=== PATIENT | male | born 1980 | race Caucasian/White ===

== ENCOUNTER 2017-07-05 19:36 | Inpatient (IN) | payer OTHER ==
[~2017-07-05] VITALS: Ht 195.6 cm; Wt 90.5 kg
[2017-07-05] VITALS (55 sets, daily range): BP systolic 105–132; BP diastolic 57–85; PULSE 100–108; TEMP 97.5–97.7; O2SAT 91–96
[2017-07-05 20:14] LABS: BASO % 0.5 % (0.0-2.0); EOS % 0.5 % (0-4.0); GRAN # 4.9 (1.4-6.5); GRAN % 63.7 % (42.2-75.2); HEMATOCRIT 45.2 % (42.0-52.0); HEMOGLOBIN 15.6 g/dl (13.5-18.0); LYMPH # 2.2 (1.2-3.4); MEAN CELL VOLUME 89 fl (80.0-100.0); MEAN CORPUSCULAR HEMOGLOBIN 31 pg (27.0-31.0); MEAN CORPUSCULAR HGB CONC 35 g/dl (33.0-37.0); MEAN PLATELET VOLUME 9.3 fl (7.4-10.4); MONO # 0.5 (0.1-0.6); MONO % 6.2 % (1.7-9.3); PLATELET COUNT 219 K/mm3 (130-400); REDCELL DISTRIBUTION WIDTH-CV 13.3 % (11.5-14.5)
[2017-07-05 20:25] LABS: ACETAMINOPHEN < 10 ug/mL (10-30); ALANINE AMINOTRANSFERASE 140 U/L (21-72); ALBUMIN 4.8 gm/dL (3.5-5.0); ALKALINE PHOSPHATASE 89 U/L (50-136); ANION GAP 19 mmol/L (7-16); AST,SGOT 165 U/L (15-37); BILIRUBIN,TOTAL 1.4 mg/dL (0.0-1.0); BLOOD UREA NITROGEN 12 mg/dL (9-20); CALCIUM 9.3 mg/dL (8.4-10.2); CARBON DIOXIDE 26 mmol/L (22-30); CHLORIDE 102 mmol/L (98-107); CREATININE, serum 0.87 mg/dL (0.66-1.25); GLUCOSE 101 mg/dL (74-106); SALICYLATE < 1.0 mg/dL; SODIUM 146 mmol/L (137-145); TOTAL PROTEIN 8.1 gm/dL (6.4-8.2)
[2017-07-05 20:33] LABS: ALCOHOL(ethanol),MEDICAL 405 mg/dL
[2017-07-05 21:21] LABS: COLLECTION METHOD CLEAN CATCH
[2017-07-05 21:26] LABS: PH 7 (5-8); SQUAMOUS EPITHELIAL 0-2 /hpf; URINE APPEARANCE Hazy; URINE BACTERIA None Seen /hpf; URINE BILIRUBIN Negative (NEGATIVE); URINE BLOOD 1+ (NEGATIVE); URINE COLOR Yellow; URINE GLUCOSE Negative (NEGATIVE); URINE KETONE Negative (NEGATIVE); URINE LEUKOCYTE ESTERASE Negative (NEGATIVE); URINE NITRATE Negative (NEGATIVE); URINE PROTEIN(semi-quant) 1+ (NEGATIVE); URINE RBC 0-2 /hpf; URINE UROBILINOGEN Negative (NEGATIVE)
[2017-07-05 21:39] LABS: TRICYCLIC ANTIDEPRESS URINE NEGATIVE
[2017-07-05 23:43] LABS: INR 0.8 (0.8-3.0); PROTHROMBIN TIME 9.6 SECONDS (9.7-12.8)
[2017-07-05 23:46] LABS: PARTIAL THROMBOPLASTIN TIME 30.5 SECONDS (26.0-37.0)
[2017-07-06] VITALS (320 sets, daily range): BP systolic 103–149; BP diastolic 55–102; PULSE 92–111; TEMP 97.9–99.9; O2SAT 88–99
[2017-07-06 05:57] LABS: BASO % 0.6 % (0.0-2.0); EOS # 0.1 (0.0-0.7); EOS % 2.2 % (0-4.0); GRAN # 2.6 (1.4-6.5); GRAN % 50.7 % (42.2-75.2); LYMPH % 39.2 % (20.0-51.0); MEAN CELL VOLUME 92 fl (80.0-100.0); MEAN CORPUSCULAR HGB CONC 34 g/dl (33.0-37.0); MEAN PLATELET VOLUME 9.8 fl (7.4-10.4); MONO # 0.4 (0.1-0.6); MONO % 7.1 % (1.7-9.3); PLATELET COUNT 141 K/mm3 (130-400); RED BLOOD COUNT 3.92 M/mm3 (4.20-5.60); REDCELL DISTRIBUTION WIDTH-CV 13.7 % (11.5-14.5)
[2017-07-06 06:03] LABS: HEMATOCRIT 35.9 % (42.0-52.0); HEMOGLOBIN 12.2 g/dl (13.5-18.0); MEAN CORPUSCULAR HEMOGLOBIN 31 pg (27.0-31.0)
[2017-07-06 06:05] LABS: ALBUMIN 3.8 gm/dL (3.5-5.0); BILIRUBIN,TOTAL 1.3 mg/dL (0.0-1.0); CALCIUM 8.1 mg/dL (8.4-10.2); CREATININE, serum 0.8 mg/dL (0.66-1.25); POTASSIUM 3.6 mmol/L (3.4-5.0); TOTAL PROTEIN 6.5 gm/dL (6.4-8.2)
[2017-07-07 03:24] VITALS: BP 140/85; PULSE 106; TEMP 99.9
[2017-07-07 05:47] LABS: BASO % 0.3 % (0.0-2.0); EOS # 0.2 (0.0-0.7); EOS % 2.3 % (0-4.0); GRAN # 5.3 (1.4-6.5); GRAN % 75.9 % (42.2-75.2); HEMOGLOBIN 12.2 g/dl (13.5-18.0); LYMPH # 1.1 (1.2-3.4); LYMPH % 15.4 % (20.0-51.0); MEAN CELL VOLUME 91 fl (80.0-100.0); MEAN CORPUSCULAR HEMOGLOBIN 31 pg (27.0-31.0); MEAN CORPUSCULAR HGB CONC 34 g/dl (33.0-37.0); MONO # 0.4 (0.1-0.6); MONO % 5.8 % (1.7-9.3); PLATELET COUNT 120 K/mm3 (130-400); RED BLOOD COUNT 3.95 M/mm3 (4.20-5.60); REDCELL DISTRIBUTION WIDTH-CV 12.8 % (11.5-14.5)
[2017-07-07 05:50] LABS: HEMATOCRIT 35.9 % (42.0-52.0)
[2017-07-07 05:58] LABS: ALBUMIN 3.3 gm/dL (3.5-5.0); CALCIUM 8.5 mg/dL (8.4-10.2); CREATININE, serum 0.7 mg/dL (0.66-1.25); POTASSIUM 4.1 mmol/L (3.4-5.0); TOTAL PROTEIN 6.2 gm/dL (6.4-8.2)
[2017-07-07 08:00] VITALS: BP 131/90; PULSE 80; TEMP 98.1
[2017-07-07 12:00] VITALS: BP 134/88; PULSE 89; TEMP 96.9
[2017-07-07 13:25] VITALS: O2SAT 98
[2017-07-07 16:00] VITALS: BP 130/91; PULSE 94; TEMP 98.1
== END 2017-07-07 20:20 | disposition left against medical advice (07) | DRG 894 ==
LOC: COL.ER 19:36 → ICU 22:31
PROVIDERS: Internal Medicine; Nurse Practitioner; Nurse Practitioner Family
DX: F10.229 Alcohol dependence with intoxication, unspecified (principal); R45.851 Suicidal ideations; F10.24 Alcohol dependence with alcohol-induced mood disorder; F11.129 Opioid abuse with intoxication, unspecified; Y90.8 Blood alcohol level of 240 mg/100 ml or more; F17.210 Nicotine dependence, cigarettes, uncomplicated; F60.3 Borderline personality disorder
CPT/HCPCS: OP; 99232-AI; A4216; J1650; J2060; J2405; J3486; J7030

== ENCOUNTER 2017-07-08 00:22 | Emergency (ER) | payer OTHER ==
[~2017-07-08] VITALS: Ht 188 cm; Wt 84.1 kg
[2017-07-08 00:33] LABS: COLLECTION METHOD CLEAN CATCH
[2017-07-08 00:39] LABS: PH 6 (5-8); SQUAMOUS EPITHELIAL None Seen /hpf; URINE APPEARANCE Clear; URINE BACTERIA None Seen /hpf; URINE BILIRUBIN Negative (NEGATIVE); URINE BLOOD Negative (NEGATIVE); URINE COLOR Straw; URINE GLUCOSE Negative (NEGATIVE); URINE KETONE Negative (NEGATIVE); URINE LEUKOCYTE ESTERASE Negative (NEGATIVE); URINE NITRATE Negative (NEGATIVE); URINE PROTEIN(semi-quant) Negative (NEGATIVE); URINE RBC 0-2 /hpf; URINE UROBILINOGEN Negative (NEGATIVE)
[2017-07-08 00:54] LABS: BASO % 0.3 % (0.0-2.0); EOS # 0.1 (0.0-0.7); EOS % 1.4 % (0-4.0); GRAN # 7.8 (1.4-6.5); GRAN % 76.9 % (42.2-75.2); HEMATOCRIT 44.8 % (42.0-52.0); LYMPH # 1.7 (1.2-3.4); LYMPH % 17.1 % (20.0-51.0); MEAN CELL VOLUME 92 fl (80.0-100.0); MEAN CORPUSCULAR HEMOGLOBIN 31 pg (27.0-31.0); MEAN CORPUSCULAR HGB CONC 34 g/dl (33.0-37.0); MEAN PLATELET VOLUME 9.9 fl (7.4-10.4); MONO # 0.4 (0.1-0.6); PLATELET COUNT 136 K/mm3 (130-400); RED BLOOD COUNT 4.87 M/mm3 (4.20-5.60)
[2017-07-08 01:03] LABS: TRICYCLIC ANTIDEPRESS URINE NEGATIVE
[2017-07-08 01:30] LABS: ALANINE AMINOTRANSFERASE 161 U/L (21-72); ALBUMIN 4.6 gm/dL (3.5-5.0); ALCOHOL(ethanol),MEDICAL 224 mg/dL; ALKALINE PHOSPHATASE 99 U/L (50-136); ANION GAP 19 mmol/L (7-16); AST,SGOT 172 U/L (15-37); BILIRUBIN,TOTAL 0.7 mg/dL (0.0-1.0); BLOOD UREA NITROGEN 13 mg/dL (9-20); CALCIUM 9.7 mg/dL (8.4-10.2); CARBON DIOXIDE 23 mmol/L (22-30); CHLORIDE 105 mmol/L (98-107); CREATININE, serum 0.79 mg/dL (0.66-1.25); GLUCOSE 94 mg/dL (74-106); POTASSIUM 4.2 mmol/L (3.4-5.0); SODIUM 147 mmol/L (137-145); TOTAL PROTEIN 8.2 gm/dL (6.4-8.2)
[2017-07-08 01:37] LABS: ACETAMINOPHEN < 10 ug/mL (10-30); SALICYLATE < 1.0 mg/dL
[2017-07-09] MEDS ORDERED: DESYREL DIVIDO150 M1 PO (04:34)
[2017-07-09 14:40] VITALS: BP 132/83; PULSE 120; TEMP 98.1
== END 2017-07-09 15:04 ==
LOC: COL.ER 00:22
PROVIDERS: Emergency Medicine
DX: S82.891A Other fracture of right lower leg, initial encounter for closed fracture (principal); S00.11XA Contusion of right eyelid and periocular area, initial encounter; F10.129 Alcohol abuse with intoxication, unspecified; R45.851 Suicidal ideations; F17.210 Nicotine dependence, cigarettes, uncomplicated; Y90.7 Blood alcohol level of 200-239 mg/100 ml; Z91.5 Personal history of self-harm; Z81.8 Family history of other mental and behavioral disorders; W06.XXXA Fall from bed, initial encounter
CPT/HCPCS: A4216; J2405; J3486

== ENCOUNTER 2017-07-21 18:31 | Emergency (ER) | payer OTHER ==
[~2017-07-21] VITALS: Ht 188 cm; Wt 90.9 kg
[~2017-07-21 18:31] MED LIST: DESYREL DIVIDO150 M1 PO
[2017-07-21 18:35] VITALS: TEMP 97.3
[2017-07-21] MEDS ORDERED: CELEXA 20MG20 MG/TAB PO (18:39)
[2017-07-21 19:16] LABS: BASO # 0.1 (0.0-0.2); BASO % 0.9 % (0.0-2.0); EOS % 0.4 % (0-4.0); GRAN # 5.6 (1.4-6.5); GRAN % 55.2 % (42.2-75.2); HEMATOCRIT 43.7 % (42.0-52.0); HEMOGLOBIN 14.9 g/dl (13.5-18.0); MEAN CELL VOLUME 90 fl (80.0-100.0); MEAN CORPUSCULAR HEMOGLOBIN 31 pg (27.0-31.0); MEAN CORPUSCULAR HGB CONC 34 g/dl (33.0-37.0); MEAN PLATELET VOLUME 8.7 fl (7.4-10.4); MONO # 0.4 (0.1-0.6); PLATELET COUNT 368 K/mm3 (130-400); RED BLOOD COUNT 4.86 M/mm3 (4.20-5.60); REDCELL DISTRIBUTION WIDTH-CV 13.3 % (11.5-14.5)
[2017-07-21 19:24] LABS: ACETAMINOPHEN < 10 ug/mL (10-30); ALANINE AMINOTRANSFERASE 51 U/L (21-72); ALBUMIN 4.2 gm/dL (3.5-5.0); ALKALINE PHOSPHATASE 90 U/L (50-136); ANION GAP 16 mmol/L (7-16); AST,SGOT 47 U/L (15-37); BILIRUBIN,TOTAL 0.4 mg/dL (0.0-1.0); BLOOD UREA NITROGEN 19 mg/dL (9-20); CALCIUM 8.8 mg/dL (8.4-10.2); CARBON DIOXIDE 28 mmol/L (22-30); CHLORIDE 103 mmol/L (98-107); CREATININE, serum 0.91 mg/dL (0.66-1.25); GLUCOSE 84 mg/dL (74-106); POTASSIUM 4.3 mmol/L (3.4-5.0); SALICYLATE < 1.0 mg/dL; SODIUM 148 mmol/L (137-145)
[2017-07-21 19:31] LABS: ALCOHOL(ethanol),MEDICAL 335 mg/dL
[2017-07-21 19:53] LABS: COLLECTION METHOD CLEAN CATCH
[2017-07-21 20:01] LABS: MUCOUS Present /lpf; PH 6 (5-8); SQUAMOUS EPITHELIAL None Seen /hpf; URINE APPEARANCE Hazy; URINE BACTERIA None Seen /hpf; URINE BILIRUBIN Negative (NEGATIVE); URINE BLOOD Negative (NEGATIVE); URINE COLOR Yellow; URINE GLUCOSE Negative (NEGATIVE); URINE KETONE Negative (NEGATIVE); URINE LEUKOCYTE ESTERASE Negative (NEGATIVE); URINE NITRATE Negative (NEGATIVE); URINE PROTEIN(semi-quant) Negative (NEGATIVE); URINE RBC 0-2 /hpf; URINE UROBILINOGEN Negative (NEGATIVE)
[2017-07-21 20:06] LABS: TRICYCLIC ANTIDEPRESS URINE NEGATIVE
[2017-07-22 03:52] VITALS: BP 139/96
[2017-07-22 05:11] VITALS: PULSE 109
== END 2017-07-22 05:11 | disposition home or self-care (01) ==
LOC: COL.ER 18:31
PROVIDERS: Emergency Medicine
DX: F10.129 Alcohol abuse with intoxication, unspecified (principal); R45.851 Suicidal ideations; F15.90 Other stimulant use, unspecified, uncomplicated; F12.90 Cannabis use, unspecified, uncomplicated; Y90.8 Blood alcohol level of 240 mg/100 ml or more
CPT/HCPCS: J2060; J7030

== ENCOUNTER 2017-07-24 04:44 | Emergency (ER) | payer OTHER ==
[~2017-07-24] VITALS: Ht 5.1 cm; Wt 92.0 kg
[~2017-07-24 04:44] MED LIST changes: +CELEXA 20MG20 MG/TAB PO
[2017-07-24 04:56] VITALS: TEMP 97.1
[2017-07-24 05:12] LABS: COLLECTION METHOD CLEAN CATCH
[2017-07-24 05:15] LABS: BASO # 0.1 (0.0-0.2); EOS # 0.1 (0.0-0.7); EOS % 1.5 % (0-4.0); GRAN # 3.6 (1.4-6.5); GRAN % 41.4 % (42.2-75.2); HEMATOCRIT 43.8 % (42.0-52.0); HEMOGLOBIN 14.8 g/dl (13.5-18.0); LYMPH # 4.5 (1.2-3.4); LYMPH % 51.8 % (20.0-51.0); MEAN CELL VOLUME 90 fl (80.0-100.0); MEAN CORPUSCULAR HEMOGLOBIN 31 pg (27.0-31.0); MEAN CORPUSCULAR HGB CONC 34 g/dl (33.0-37.0); MEAN PLATELET VOLUME 8.9 fl (7.4-10.4); MONO # 0.4 (0.1-0.6); MONO % 4.1 % (1.7-9.3); PLATELET COUNT 358 K/mm3 (130-400); RED BLOOD COUNT 4.85 M/mm3 (4.20-5.60); REDCELL DISTRIBUTION WIDTH-CV 13.7 % (11.5-14.5)
[2017-07-24 05:18] LABS: MUCOUS Present /lpf; PH 5 (5-8); SQUAMOUS EPITHELIAL 0-2 /hpf; URINE APPEARANCE Clear; URINE BACTERIA None Seen /hpf; URINE BILIRUBIN Negative (NEGATIVE); URINE BLOOD 1+ (NEGATIVE); URINE COLOR Yellow; URINE GLUCOSE Negative (NEGATIVE); URINE KETONE Negative (NEGATIVE); URINE LEUKOCYTE ESTERASE Negative (NEGATIVE); URINE NITRATE Negative (NEGATIVE); URINE PROTEIN(semi-quant) 1+ (NEGATIVE); URINE UROBILINOGEN Negative (NEGATIVE)
[2017-07-24 05:26] LABS: ALANINE AMINOTRANSFERASE 60 U/L (21-72); ALBUMIN 4.5 gm/dL (3.5-5.0); ALCOHOL(ethanol),MEDICAL 286 mg/dL; ALKALINE PHOSPHATASE 95 U/L (50-136); ANION GAP 18 mmol/L (7-16); AST,SGOT 53 U/L (15-37); BILIRUBIN,TOTAL 0.6 mg/dL (0.0-1.0); BLOOD UREA NITROGEN 15 mg/dL (9-20); CALCIUM 8.5 mg/dL (8.4-10.2); CARBON DIOXIDE 23 mmol/L (22-30); CHLORIDE 106 mmol/L (98-107); CREATININE, serum 0.94 mg/dL (0.66-1.25); GLUCOSE 99 mg/dL (74-106); POTASSIUM 4.1 mmol/L (3.4-5.0); SODIUM 147 mmol/L (137-145); TOTAL PROTEIN 8.5 gm/dL (6.4-8.2)
[2017-07-24 05:27] LABS: ACETAMINOPHEN < 10 ug/mL (10-30); SALICYLATE < 1.0 mg/dL
[2017-07-24 05:41] LABS: TRICYCLIC ANTIDEPRESS URINE NEGATIVE
[2017-07-25 10:34] VITALS: BP 128/82; PULSE 86
== END 2017-07-25 10:50 ==
LOC: COL.ER 04:44
PROVIDERS: Emergency Medicine
DX: R45.851 Suicidal ideations (principal); F10.129 Alcohol abuse with intoxication, unspecified; F32.9 Major depressive disorder, single episode, unspecified; F17.210 Nicotine dependence, cigarettes, uncomplicated; Y90.8 Blood alcohol level of 240 mg/100 ml or more
CPT/HCPCS: J2060; J7030

== ENCOUNTER 2021-08-04 16:25 | Inpatient (IN) | payer SELFPAY ==
[2021-08-04] VITALS (210 sets, daily range): BP systolic 103–155; BP diastolic 68–101; PULSE 71–120; TEMP 97.2; O2SAT 76–100
[~2021-08-04] VITALS: Ht 188 cm; Wt 118.5 kg
[2021-08-04 17:20] LABS: COLLECTION METHOD CLEAN CATCH
[2021-08-04 17:26] LABS: MUCOUS Present (NOT PRESENT); PH 6 (5-8); SQUAMOUS EPITHELIAL 0-2 /hpf (0-10); URINE APPEARANCE Clear (CLEAR/HAZY); URINE BACTERIA None Seen /hpf (NONE SEEN); URINE BILIRUBIN Negative (NEGATIVE); URINE BLOOD Negative (NEGATIVE); URINE COLOR Yellow (YELLOW); URINE GLUCOSE Negative (NEGATIVE); URINE KETONE 1+ (NEGATIVE); URINE LEUKOCYTE ESTERASE Negative (NEGATIVE); URINE NITRATE Negative (NEGATIVE); URINE PROTEIN(semi-quant) Negative (NEGATIVE); URINE RBC 0-2 /hpf (0-2); URINE UROBILINOGEN Negative (NEGATIVE)
[2021-08-04 17:27] LABS: BASO # 0.1 K/mm3 (0.0-0.2); BASO % 0.5 % (0.0-2.0); EOS % 0.3 % (0.0-4.0); GRAN # 7.4 K/mm3 (1.4-6.5); GRAN % 73.5 % (42.2-75.2); HEMATOCRIT 42.8 % (42.0-52.0); HEMOGLOBIN 14.6 g/dl (13.5-18.0); LYMPH # 2.1 K/mm3 (1.2-3.4); LYMPH % 21.1 % (20.0-51.0); MEAN CELL VOLUME 85 fl (80.0-100.0); MEAN CORPUSCULAR HEMOGLOBIN 29 pg (27-31); MEAN CORPUSCULAR HGB CONC 34 g/dl (33.0-37.0); MEAN PLATELET VOLUME 10.4 fl (7.4-10.4); MONO # 0.4 K/mm3 (0.1-0.6); MONO % 4.2 % (1.7-9.3); PLATELET COUNT 243 K/mm3 (130-400); RED BLOOD COUNT 5.05 M/mm3 (4.20-5.60); REDCELL DISTRIBUTION WIDTH-CV 12.6 % (11.5-14.5)
[2021-08-04 17:34] LABS: TRICYCLIC ANTIDEPRESS URINE NEGATIVE
[2021-08-04 17:47] LABS: ALANINE AMINOTRANSFERASE 14 U/L (0-55); ALBUMIN 4.1 gm/dL (3.5-5.0); ALKALINE PHOSPHATASE 74 U/L (40-150); ANION GAP 13 mmol/L (7-16); AST,SGOT 17 U/L (5-34); BILIRUBIN,TOTAL 0.5 mg/dL (0.2-1.2); BLOOD UREA NITROGEN 10 mg/dL (9-21); CALCIUM 8.6 mg/dL (8.4-10.2); CARBON DIOXIDE 23 mmol/L (22-29); CHLORIDE 105 mmol/L (98-107); CREATININE, serum 0.81 mg/dL (0.72-1.25); GLUCOSE 90 mg/dL (70-99); SODIUM 141 mmol/L (136-145); TOTAL PROTEIN 6.7 gm/dL (6.2-8.1)
[2021-08-04 17:50] LABS: ACETAMINOPHEN < 1.0 ug/mL (10-30); ALCOHOL(ethanol),MEDICAL < 10 mg/dL (0-10); SALICYLATE < 5.0 mg/dL (15.0-30.0)
[2021-08-04 18:07] LABS: TSH w REFLEX 0.345 uIU/mL (0.350-4.940)
[2021-08-04 19:02] LABS: PROTHROMBIN TIME 11.1 SECONDS (9.7-12.8)
[2021-08-04] MEDS ORDERED: VRAYLAR6 MG PO (19:03)
[2021-08-04] MEDS ORDERED: CATAPRES 0.1MG0.1 MG PO (19:03)
[2021-08-04] MEDS ORDERED: LEXAPRO20 MG PO (19:03)
[2021-08-04] MEDS ORDERED: DESYREL DIVIDO300 MG PO (19:03)
[2021-08-04] MEDS ORDERED: SUBOXONE 8 MG-21 TAB SL (19:03)
[2021-08-04 19:05] LABS: PARTIAL THROMBOPLASTIN TIME 29.2 SECONDS (26.0-37.0)
[2021-08-04 19:13] LABS: MAGNESIUM 1.8 mg/dL (1.6-2.6); PHOSPHOROUS 3.2 mg/dL (2.3-4.7)
--- NOTE | 2021-08-04 20:06 | NUR ---
Received report from ED nurse, Stephanie.
--- NOTE | 2021-08-04 20:14 | NUR ---
Patient arrives to ICU room 4 via ED stretcher. Patient is alert and oriented; he transfers independently with steady gait to ICU bed. Inital vitals within normal limits. Patient denies any pain or discomfort at this time. Mild tremors noted in the upper extremities; palms are dry, forehead is somewhat clammy. Patient is polite with staff and agreeable with 1:1 monitoring. He is not threatening self or staff harm. Patient arrives in knox gown. Per ED nurse, personal belongings have been sent with security, with the exception of a knox undershirt and underwear, which have been removed and placed in the ICU locked cabinent. Patient's glasses are the only personal belongings remaining at bedside. Rosemary hospitalist, aware of patient's arrival.
[2021-08-05] VITALS (425 sets, daily range): BP systolic 94–121; BP diastolic 56–86; PULSE 55–90; TEMP 97.6–98; O2SAT 84–100
--- NOTE | 2021-08-05 04:19 | NUR ---
Order in chart for an EKG. When I spoke with the Nurse she stated that pt had refused EKG in ER. I asked the pt again in ICU if we could do an EKG and he stated that he hadn't slept in 5 days and did not want to do an EKG right now.
[2021-08-05 06:23] LABS: BASO # 0.1 K/mm3 (0.0-0.2); BASO % 0.6 % (0.0-2.0); EOS # 0.2 K/mm3 (0.0-0.7); EOS % 3.1 % (0.0-4.0); GRAN # 3.4 K/mm3 (1.4-6.5); GRAN % 43.5 % (42.2-75.2); HEMATOCRIT 37.5 % (42.0-52.0); LYMPH # 3.6 K/mm3 (1.2-3.4); LYMPH % 46.2 % (20.0-51.0); MEAN CELL VOLUME 86 fl (80.0-100.0); MEAN CORPUSCULAR HEMOGLOBIN 29 pg (27-31); MEAN CORPUSCULAR HGB CONC 34 g/dl (33.0-37.0); MEAN PLATELET VOLUME 10.6 fl (7.4-10.4); MONO # 0.5 K/mm3 (0.1-0.6); MONO % 6.3 % (1.7-9.3); PLATELET COUNT 200 K/mm3 (130-400); RED BLOOD COUNT 4.35 M/mm3 (4.20-5.60); REDCELL DISTRIBUTION WIDTH-CV 12.7 % (11.5-14.5)
[2021-08-05 06:38] LABS: CREATININE, serum 0.77 mg/dL (0.72-1.25)
[2021-08-05 07:22] LABS: HEMOGLOBIN 12.6 g/dl (13.5-18.0)
--- NOTE | 2021-08-05 07:45 | NUR ---
Resumed care of PT, introduced myself. PT is resting in bed stated " I would like to get some sleep". I asked if the PT would like some breakfast and he stated yes. PT appears to be in no distress sleeping between disturbances. This nurse will be a 1:1 with PT. PTs room has been checked for ligature, sharp objects, or anything can hurt/ harm PT. All questions answered.
--- NOTE | 2021-08-05 08:38 | NUR ---
PT refused all AM medication, stated that he only wants his nicotine patch. This nurse educated on the importance of staying on mood stabilizers such as Lexapro. PT requested Hilary, stated " I get that in [facility]".
--- NOTE | 2021-08-05 09:07 | NUR ---
PT downgraded 2:1 per
--- NOTE | 2021-08-05 10:09 | NUR ---
PT medications in pharmacy, and Noreen is in PT bulk items bin.
--- NOTE | 2021-08-05 11:29 | NUR ---
SW met with pt to complete intake. Pt was sleeping, will try back later.
--- NOTE | 2021-08-05 14:51 | NUR ---
PT STATED THAT HE STILL WANTS TO HURT HIMSELF. PT STATED THAT HE HAS A PLAN, THE PLAN IS TO " CUT HIS THROAT" AND IF HE COULD, HE WOULD ACT ON THIS PLAN.
--- NOTE | 2021-08-05 16:14 | NUR ---
Checked on PT after he appeared to be rocking back in forth in bed. PT stated that he feel anxious. CIWA score is a 4.
--- NOTE | 2021-08-05 19:29 | NUR ---
PT CALMLY LAYING IN BED. WHEN ASKED HOW HES FEELING HE STATES "SUICICAL"
--- NOTE | 2021-08-05 20:49 | NUR ---
PT CURRENTLY SITTING IN BED EATING TURKEY SANDWICH BOX AND DRINKING SPRITE ZERO. ASKED PT IF HE WAS STILL FEELING SUICIDAL. PT STATES HE FEELS MORE CALM THAN DURING EARLIER ASSESSMENT
--- NOTE | 2021-08-05 22:59 | NUR ---
PT CURRENTLY SLEEPING
[2021-08-06] VITALS (28 sets, daily range): BP systolic 99–129; BP diastolic 61–87; PULSE 55–103; TEMP 97.2–98.4; O2SAT 67–99
--- NOTE | 2021-08-06 07:10 | NUR ---
Report received from CATRINA Elias. Patient resting with eyes shut; no concerns at this time.
--- NOTE | 2021-08-06 08:15 | NUR ---
Patient resting in bed; cooperative with assessment and all cares. Took medications without any issues. Patient observed rocking back and forth in bed. Stated that he slept well overnight but is feeling very "anxoius". When asked if this anxiety is new or different than previous levels patient stated that this anxiety has been at approximately the same level since his admission. After assessment and medication administration patient returned to bed. Will continue to monitor.
--- NOTE | 2021-08-06 09:31 | NUR ---
forest nursery worker met with patient to complete intake. Patient currently lives at home alone in [facility]. He reports to being fully independent with his ADL's and does not utilize any DME to assist with mobility. Patient has no home oxygen needs. Patient reports to not having a PCP or a pharmacy that he normally uses. Patient reports that he does not have a DPOA-HC established. He is legally but he is seperated from her Pati Jay. He does not have her number and does not know what she is living. Patient does not have any children and confirms that his mother Oma ([phone]) is his emergency contact.
--- NOTE | 2021-08-06 17:00 | NUR ---
Patient upset that he was accepted to [facility] instead of [facility]. States that the he doesn't want to go to a "turn and burn" facility. Has repeatedly made statements to this nurse that [facility] is the only place that can help him. Also states that if he goes to [facility] he will end up "jumping in front of a Semi-truck" or "commiting suicide by mass spectroscopist" This nurse discussed with patient that this facility has the same end goal for treatment as [facility] and their goal is to help him no matter where he is accepted. This discussion was not helpful in persuading patient. This nurse called a [place] screener and had her discuss the options and reason for not being accepted at [facility]. This screener also called [facility] again and requested transfer for patient but was denied a second time. Discussed with patient that he would be going to [facility] either way and he would either go voluntarily or would be changed to involuntary status if he refused. Patient eventually agreed to go voluntary. Hospitalist and [place] screener were also notified about patients statments about "suicide by mass spectroscopist" and "jumping in front of a Semi". Continuing q15 min suicide checks.
--- NOTE | 2021-08-06 18:15 | NUR ---
Patient pacing in room; anxious and asking about transport and asking about getting all of his belongings back. This nurse and warehouse order picker were just outside the room and gave him the ETA and to please have some patience. Stated he could have his belongings when secure transport arrives. Patient screamed into the warehouse order picker's face that he was "done with patience!" Attempted to calm patient and administered dose of ativan. Allowed patient to have some articles clothing after pockets were checked. Other belongings which were in a backpack and a rolling suitcase along with his medications were left outside the room. Security also called to monitor the situation.
--- NOTE | 2021-08-06 19:38 | NUR ---
PT CURRENTLY PACING IN ROOM. STATES HE FEELS VERY ANGRY AND SUICIDAL. HE IS COOPERATIVE W CARE AND LETS RN CHECK VITAL SIGNS AND DO SHIFT ASSESSMENT. REQUESTING "A SHOT OF GEODON" WHEN ASKED IF HE NEEDS ANYTHING
--- NOTE | 2021-08-06 19:44 | NUR ---
PT CURRENTLY PACING IN ROOM; STATES HE FEELS VERY ANGRY AND SUICIDAL. HOWEVER, HE IS COOPERATIVE WITH CARE AND LETS RN CHECK VS AND DO SHIFT ASSESSMENT. PT REQUESTING "A SHOT OF GEODON" WHEN ASKED IF HE NEEDS ANYTHING.
--- NOTE | 2021-08-06 20:07 | NUR ---
Called report to CATRINA Villa at [facility].
--- NOTE | 2021-08-06 20:24 | NUR ---
PT D/C TO [facility] AT THIS TIME. LEFT FLOOR IN STABLE CONDITION W/ SECURITY TRANSPORT TEAM. ALL DOCUMENTS FAXED TO RECIEVING FACILITY DURING PREVIOUS SHIFT. H&P, PROGRESS NOTES, AND FACESHEET SENT IN SEALED PACKET W/ SECURITY PERSONEL. IV D/C'D AND PT THERON WELL. ALL PT BELONGINGS GIVEN TO SECURITY PERSONEL.
== END 2021-08-06 20:25 | DRG 897 ==
LOC: COL.ER 16:25 → ICU 18:19
PROVIDERS: Nurse Practitioner Family; Physician Assistant; ADMIT Family Medicine
DX: F10.139 Alcohol abuse with withdrawal, unspecified (principal); R45.851 Suicidal ideations; F32.A Depression, unspecified; F41.9 Anxiety disorder, unspecified; F43.10 Post-traumatic stress disorder, unspecified; F17.210 Nicotine dependence, cigarettes, uncomplicated; F14.10 Cocaine abuse, uncomplicated; F19.10 Other psychoactive substance abuse, uncomplicated; T43.506A Underdosing of unspecified antipsychotics and neuroleptics, initial encounter; Y90.0 Blood alcohol level of less than 20 mg/100 ml; Z91.128 Patient's intentional underdosing of medication regimen for other reason; Z86.73 Personal history of transient ischemic attack (TIA), and cerebral infarction without residual deficits
CPT/HCPCS: 99222-AI; 99233-AI; 99239; J1650; J2060; J3411; J7030